=== PATIENT | male | born 1940 | race Caucasian/White ===

== ENCOUNTER 2020-11-03 19:45 | Observation (INO) | payer MEDICARE ==
[2020-11-03] MEDS ORDERED: Sodium Chloride 0.9% 10 ML Syringe FLUSH PRN (20:45)
--- NOTE | 2020-11-03 21:42 | EDM.PDOC ---
ED HPI GENERAL MEDICAL PROBLEM - General Chief Complaint: Skin Complaint Stated Complaint: HEAD PAIN Time Seen by Provider: 11/03/20 20:05 Source of Information: Reports: Patient History Limitations: Reports: No Limitations - History of Present Illness INITIAL COMMENTS - FREE TEXT/NARRATIVE: The patient has come in with a painful shingles eruption. 5 days ago, Tuesday he felt some annoying sensation on the left side of his forehead and face but no rash or skin eruption. The following day, , 4 days ago the rash broke out on his forehead primarily. Yesterday, Tuesday he was seen in clinic and started on Valtrex. Today he was seen by an hot kettle tender who assured him that the virus "had not gone into the eye" and also by his primary and was given a prescription for Percocet and he took his first dose of short while ago. According to the records from the office visit earlier today "patient states he would prefer to go to the ER for further pain management." There are no readily identified risk factors other than chickenpox as a child and former smoking status. He does have a history of macular degeneration affecting his left eye. The patient apparently smoked off and on for a number of years but quit for good 7 years ago. The patient takes no medications on a regular basis. He has come to us essentially for pain management. The patient's son arrived at bedside and provides additional information for us. The patient lives alone. His functional status has decreased considerably since this outbreak of shingles. He has been taking nourishment poorly. He is unsteady on his feet. He has macular degeneration which impairs his ability to make urgent telephone calls in the event of a fall or other problem. Due to the son's travel schedule and the presence of vulnerable small children in the household they are unable to bring the patient into their home and there is no other place for him to go. Headache Pain Score (Numeric/FACES): 7 - Related Data Allergies Allergy/AdvReac Type Severity Reaction Status Date / Time No Known Allergies Allergy Verified 11/09/13 20:09 Home Meds: Home Meds Ondansetron [Zofran ODT] 4 mg PO ASDIRECTED PRN 11/03/20 [History] oxyCODONE HCl/Acetaminophen [Percocet 5-325 mg Tablet] 1 tab PO ASDIRECTED PRN 11/03/20 [History] valACYclovir [Valtrex] 1,000 mg PO TID 11/03/20 [History] Past Medical History - Infectious Disease History Infectious Disease History: Reports: Shingles - Past Surgical History Musculoskeletal Surgical History: Reports: Arthroscopic Knee Social & Family History - Tobacco Use Tobacco Use Status *Q: Former Tobacco User Used Tobacco, but Quit: Yes Month/Year Tobacco Last Used: 2013 - Alcohol Use Days Per Week of Alcohol Use: 7 Number of Drinks Per Day: 1 Total Drinks Per Week: 7 - Recreational Drug Use Recreational Drug Use: No ED ROS GENERAL - Review of Systems Review Of Systems: Comprehensive ROS is negative, except as noted in HPI. ED EXAM, SKIN/RASH Exam: See Below Text/Narrative:: On exam the patient is alert and in no distress. Head normocephalic atraumatic. EOMI, PERRLA. Regarding the left eye there is injection of the conjunctiva. There is a small area lateral and slightly above the cornea about 3 mm diameter which seems to represent a mild subconjunctival hematoma. The cornea, iris/pupil, and anterior chamber are all unremarkable. There is swelling and redness of the eyelids on the left as well as some erythema and swelling of tissues around the orbit. There is a crusted lesion above the eyebrow laterally on the left side. There are other smaller crusted lesions scattered around this 1. No other lesions are identified at this time. There is a fair amount of erythema affecting the left side of the face superiorly. Neck is supple without jugular venous distention. Lungs are clear. Heart is regular. Abdomen is soft and nontender. No peripheral edema cyanosis or clubbing of digits. Neurologically he is grossly intact with fluent speech and no sensory or motor deficit. Skin is warm and dry except as noted above. Course - Vital Signs Text/Narrative:: Since the onset of the patient's shingles he has had significant decline in function. He is taking nourishment poorly. There is failure to thrive. He lives alone and there would be a safety issue sending him home tonight and there is no alternative placement for him at this time. Recommend observation admission to make arrangements for care for the patient if that is possible. Presented to Dr. Starr hospitalist and he is admitted into observation status on telemetry. See orders. Last Recorded V/S: Last Vital Signs Temp 37.6 C 11/03/20 19:52 Pulse 79 11/03/20 19:52 Resp 16 11/03/20 19:52 BP 182/102 H 11/03/20 19:52 Pulse Ox 97 11/03/20 19:52 - Orders/Labs/Meds Orders: Active Orders 24 hr Category Date Time Status Patient Status [ADT] Routine ADT 11/04/20 00:48 Active Peripheral IV Care [RC] . DIRECTED Care 11/03/20 20:46 Active Sodium Chloride 0.9% [Normal Saline] 1,000 ml Med 11/03/20 23:00 Active IV ASDIRECTED Sodium Chloride 0.9% [Saline Flush] Med 11/03/20 20:45 Active 10 ml FLUSH ASDIRECTED PRN Peripheral IV Insertion Adult [OM.PC] Stat Oth 11/03/20 20:46 Ordered Medication Orders Sodium Chloride (Normal Saline) 1,000 mls @ 75 mls/hr IV ASDIRECTED MORALES Last Admin: 11/03/20 23:11 Dose: 75 mls/hr Documented by: MARINA Sodium Chloride (Sodium Chloride 0.9% 10 Ml Syringe) 10 ml FLUSH ASDIRECTED PRN PRN Reason: Keep Vein Open Last Admin: 11/03/20 21:21 Dose: 10 ml Documented by: MARINA Labs: Laboratory Tests 11/03/20 11/03/20 11/03/20 Range/Units 21:05 21:05 21:05 WBC 4.47 (4.23-9.07) K/mm3 RBC 4.60 L (4.63-6.08) M/mm3 Hgb 14.4 (13.7-17.5) gm/dl Hct 43.0 (40.1-51.0) % MCV 93.5 H (79.0-92.2) fl MCH 31.3 (25.7-32.2) pg MCHC 33.5 (32.2-35.5) g/dl RDW Std Deviation 40.9 (35.1-43.9) fL Plt Count 165 (163-337) K/mm3 MPV 9.5 (9.4-12.3) fl Neutrophils % (Manual) 75 H (40-60) % Band Neutrophils % 0 (0-10) % Lymphocytes % (Manual) 16 L (20-40) % Atypical Lymphs % 0 % Monocytes % (Manual) 9 (2-10) % Eosinophils % (Manual) 0 L (0.8-7.0) % Basophils % (Manual) 0 L (0.2-1.2) Platelet Estimate Adequate RBC Morph Comment Normal ESR 19 H (0-15) mm/hr Sodium 138 (136-145) mEq/L Potassium 4.3 (3.5-5.1) mEq/L Chloride 100 (98-107) mEq/L Carbon Dioxide 25 (21-32) mEq/L Anion Gap 17.3 H (5-15) BUN 22 H (7-18) mg/dL Creatinine 1.4 H (0.7-1.3) mg/dL Est Cr Clr Drug Dosing 44.90 mL/min Estimated GFR (MDRD) 49 (>60) mL/min BUN/Creatinine Ratio 15.7 (14-18) Glucose 112 (83-115) mg/dL Calcium 9.1 (8.5-10.1) mg/dL Total Bilirubin 0.6 (0.2-1.0) mg/dL AST 23 (15-37) U/L ALT 29 (16-63) U/L Alkaline Phosphatase 74 (46-116) U/L C-Reactive Protein 4.8 H* (<1.0) mg/dL Total Protein 7.3 (6.4-8.2) g/dl Albumin 3.5 (3.4-5.0) g/dl Globulin 3.8 gm/dL Albumin/Globulin Ratio 0.9 L (1-2) SARS-CoV-2 RNA (SOCO) (NEGATIVE) 11/03/20 Range/Units 23:00 WBC (4.23-9.07) K/mm3 RBC (4.63-6.08) M/mm3 Hgb (13.7-17.5) gm/dl Hct (40.1-51.0) % MCV (79.0-92.2) fl MCH (25.7-32.2) pg MCHC (32.2-35.5) g/dl RDW Std Deviation (35.1-43.9) fL Plt Count (163-337) K/mm3 MPV (9.4-12.3) fl Neutrophils % (Manual) (40-60) % Band Neutrophils % (0-10) % Lymphocytes % (Manual) (20-40) % Atypical Lymphs % % Monocytes % (Manual) (2-10) % Eosinophils % (Manual) (0.8-7.0) % Basophils % (Manual) (0.2-1.2) Platelet Estimate RBC Morph Comment ESR (0-15) mm/hr Sodium (136-145) mEq/L Potassium (3.5-5.1) mEq/L Chloride (98-107) mEq/L Carbon Dioxide (21-32) mEq/L Anion Gap (5-15) BUN (7-18) mg/dL Creatinine (0.7-1.3) mg/dL Est Cr Clr Drug Dosing mL/min Estimated GFR (MDRD) (>60) mL/min BUN/Creatinine Ratio (14-18) Glucose (83-115) mg/dL Calcium (8.5-10.1) mg/dL Total Bilirubin (0.2-1.0) mg/dL AST (15-37) U/L ALT (16-63) U/L Alkaline Phosphatase (46-116) U/L C-Reactive Protein (<1.0) mg/dL Total Protein (6.4-8.2) g/dl Albumin (3.4-5.0) g/dl Globulin gm/dL Albumin/Globulin Ratio (1-2) SARS-CoV-2 RNA (SOCO) Negative (NEGATIVE) Meds: Medications Generic Name Dose Route Start Last Admin Trade Name Frerafi PRN Reason Stop Dose Admin Sodium Chloride 1,000 mls @ 75 mls/hr 11/03/20 23:00 11/03/20 23:11 Normal Saline IV 75 mls/hr ASDIRECTED MORALES Administration Sodium Chloride 10 ml 11/03/20 20:45 11/03/20 21:21 Sodium Chloride 0.9% 10 Ml Syringe FLUSH 10 ml ASDIRECTED PRN Administration Keep Vein Open Discontinued Medications Generic Name Dose Route Start Last Admin Trade Name Freq PRN Reason Stop Dose Admin Ondansetron HCl 4 mg 11/03/20 22:35 11/03/20 22:41 Ondansetron 4 Mg Tab.Dis PO 11/03/20 22:36 4 mg ONETIME ONE Administration Departure - Departure Time of Disposition: 00:55 Disposition: Refer to Observation Condition: Fair Clinical Impression: Declining functional status, Adult failure to thrive Shingles Qualifiers: Herpes zoster complications: with other complications Qualified Code(s): B02.8 - Zoster with other complications - Discharge Information Referrals: Matthew Feliz Jr, MD [Primary Care Provider] - Forms: ED Department Discharge Sepsis Event Note (ED) - Evaluation Sepsis Screening Result: No Definite Risk - Focused Exam Vital Signs: Vital Signs Temp Pulse Resp BP Pulse Ox 11/03/20 19:52 37.6 C 79 16 182/102 H 97 - My Orders Last 24 Hours: My Active Orders 11/03/20 20:45 Sodium Chloride 0.9% [Saline Flush] 10 ml FLUSH ASDIRECTED PRN 11/03/20 20:46 Peripheral IV Care [RC] . DIRECTED Peripheral IV Insertion Adult [OM.PC] Stat 11/03/20 23:00 Sodium Chloride 0.9% [Normal Saline] 1,000 ml IV ASDIRECTED 11/04/20 00:48 Patient Status [ADT] Routine - Assessment/Plan Last 24 Hours: My Active Orders 11/03/20 20:45 Sodium Chloride 0.9% [Saline Flush] 10 ml FLUSH ASDIRECTED PRN 11/03/20 20:46 Peripheral IV Care [RC] . DIRECTED Peripheral IV Insertion Adult [OM.PC] Stat 11/03/20 23:00 Sodium Chloride 0.9% [Normal Saline] 1,000 ml IV ASDIRECTED 11/04/20 00:48 Patient Status [ADT] Routine
[2020-11-03] MEDS ORDERED: Ondansetron 4 MG Tab.DIS PO ONE (22:35)
[2020-11-03] MEDS ORDERED: Sodium Chloride 0.9% 1,000 ML IV SCH (23:00)
[2020-11-04] MEDS ORDERED: Acetaminophen 325 MG Tab PO PRN (01:14)
[2020-11-04] MEDS ORDERED: Morphine 2 MG/ML SYRINGE IVPUSH PRN (01:14)
[2020-11-04] MEDS ORDERED: Albuterol/Ipratropium 3.0-0.5 MG/3 ML Neb Soln NEB PRN (01:14)
[2020-11-04] MEDS ORDERED: Promethazine 12.5 MG in Sodium Chloride 0.9% 50 ML IV PRN (01:14)
[2020-11-04] MEDS ORDERED: LORazepam 2 MG/ML SDV IV PRN (01:14)
[2020-11-04] MEDS ORDERED: Lactated Ringers 1,000 ML IV SCH (01:15)
[2020-11-04] MEDS: LORazepam 2 MG/ML SDV IVPUSH ONE ×2 (01:22→01:29)
[2020-11-04] MEDS ORDERED: amLODIPine 5 MG Tab PO SCH (01:30)
[2020-11-04] MEDS: Heparin Sodium 5,000 Units/ML Vial SUBCUT SCH ×3 (01:34→17:33)
--- NOTE | 2020-11-04 01:42 | PCM.HP.2 ---
H&P History of Present Illness - General Date of Service: 11/04/20 Admit Problem/Dx: Admission Diagnosis/Problem Admission Diagnosis/Problem Shingles (herpes zoster) polyneuropathy Source of Information: Patient, Provider - History of Present Illness Initial Comments - Free Text/Narative: Pt is a 79 yom with a hx of HTN and macular degeneration who presented to the ER due to painful shingles eruption on the left side of his forehead and face. He started to feel some hypersensitive sensation on Tuesday (5 days ago) in the area and the rash broke out on (4 days ago). He was seen in clinic yesterday (Tuesday) and started on Valacyclovir 1000mg po tid and percocet. He was seen by an information services consultant today who told him "had not gone into the eye". He had chickenpox as a child. Other than the symptoms mentioned above, he is fine. Denies headache, dizziness, nausea, vomiting, chest pain, sob or abodminal pain. In the ER, labs WBC 4.47, ESR 19, CRP 4.8. His creatinine 1.4 but there is no p revious record available. Headache Pain Score (Numeric/FACES): 7 - Related Data Allergies/Adverse Reactions: Allergies Allergy/AdvReac Type Severity Reaction Status Date / Time No Known Allergies Allergy Verified 11/09/13 20:09 Home Medications: Home Meds Ondansetron [Zofran ODT] 4 mg PO ASDIRECTED PRN 11/03/20 [History] oxyCODONE HCl/Acetaminophen [Percocet 5-325 mg Tablet] 1 tab PO ASDIRECTED PRN 11/03/20 [History] valACYclovir [Valtrex] 1,000 mg PO TID 11/03/20 [History] Past Medical History - Infectious Disease History Infectious Disease History: Reports: Shingles - Past Surgical History Musculoskeletal Surgical History: Reports: Arthroscopic Knee - History Comment History Comment: Chickinpox as a child Social & Family History - Family History Family Medical History: No Pertinent Family History (Denies genetic diseases in family) - Tobacco Use Tobacco Use Status *Q: Former Tobacco User Used Tobacco, but Quit: Yes Month/Year Tobacco Last Used: 2013 - Alcohol Use Days Per Week of Alcohol Use: 7 Number of Drinks Per Day: 1 Total Drinks Per Week: 7 - Recreational Drug Use Recreational Drug Use: No H&P Review of Systems - Review of Systems: Review Of Systems: See Below General: Reports: No Symptoms HEENT: Reports: Other (left forehead and face pain) Pulmonary: Reports: No Symptoms Cardiovascular: Reports: No Symptoms Gastrointestinal: Reports: No Symptoms Genitourinary: Reports: No Symptoms Musculoskeletal: Reports: No Symptoms Skin: Reports: Rash Psychiatric: Reports: No Symptoms Neurological: Reports: No Symptoms Hematologic/Lymphatic: Reports: No Symptoms Immunologic: Reports: No Symptoms Exam - Exam Exam: See Below - Vital Signs Vital Signs: Last Vital Signs Temp 36.6 C 11/04/20 01:14 Pulse 79 11/03/20 19:52 Resp 18 11/04/20 01:14 BP 172/92 H 11/04/20 01:14 Pulse Ox 94 L 11/04/20 01:39 Weight: 81.647 kg - Exam General: Alert, Oriented, Cooperative HEENT: EOMI, Other (Injection of left conjunctiva. there is a 3mm diameter of possible subconjunctival hematoma. swelling and erythema of eyelids and skin adjacent to orbit. some crusted lesions are noted in the area. ), PERRLA Neck: Supple, Full Range of Motion Lungs: Clear to Auscultation, Normal Respiratory Effort Cardiovascular: Regular Rate, Regular Rhythm, Normal S1, Normal S2 GI/Abdominal Exam: Normal Bowel Sounds, Soft, Non-Tender, No Organomegaly, No Distention Extremities: Normal Inspection, Normal Range of Motion, Non-Tender, No Pedal Edema Skin: Warm, Dry, Intact Neurological: Cranial Nerves Intact, Reflexes Equal Bilateral, Strength Equal Bilateral Neuro Extensive - Mental Status: Alert, Oriented x3, Normal Mood/Affect Neuro Extensive - Motor, Sensory, Reflexes: CN II-XII Intact, Normal Reflexes Psychiatric: Normal Mood - Patient Data Lab Results Last 24 hrs: Laboratory Results - last 24 hr 11/03/20 11/03/20 11/03/20 Range/Units 21:05 21:05 21:05 WBC 4.47 (4.23-9.07) K/mm3 RBC 4.60 L (4.63-6.08) M/mm3 Hgb 14.4 (13.7-17.5) gm/dl Hct 43.0 (40.1-51.0) % MCV 93.5 H (79.0-92.2) fl MCH 31.3 (25.7-32.2) pg MCHC 33.5 (32.2-35.5) g/dl RDW Std Deviation 40.9 (35.1-43.9) fL Plt Count 165 (163-337) K/mm3 MPV 9.5 (9.4-12.3) fl Neutrophils % (Manual) 75 H (40-60) % Band Neutrophils % 0 (0-10) % Lymphocytes % (Manual) 16 L (20-40) % Atypical Lymphs % 0 % Monocytes % (Manual) 9 (2-10) % Eosinophils % (Manual) 0 L (0.8-7.0) % Basophils % (Manual) 0 L (0.2-1.2) Platelet Estimate Adequate RBC Morph Comment Normal ESR 19 H (0-15) mm/hr Sodium 138 (136-145) mEq/L Potassium 4.3 (3.5-5.1) mEq/L Chloride 100 (98-107) mEq/L Carbon Dioxide 25 (21-32) mEq/L Anion Gap 17.3 H (5-15) BUN 22 H (7-18) mg/dL Creatinine 1.4 H (0.7-1.3) mg/dL Est Cr Clr Drug Dosing 44.90 mL/min Estimated GFR (MDRD) 49 (>60) mL/min BUN/Creatinine Ratio 15.7 (14-18) Glucose 112 (83-115) mg/dL Calcium 9.1 (8.5-10.1) mg/dL Total Bilirubin 0.6 (0.2-1.0) mg/dL AST 23 (15-37) U/L ALT 29 (16-63) U/L Alkaline Phosphatase 74 (46-116) U/L C-Reactive Protein 4.8 H* (<1.0) mg/dL Total Protein 7.3 (6.4-8.2) g/dl Albumin 3.5 (3.4-5.0) g/dl Globulin 3.8 gm/dL Albumin/Globulin Ratio 0.9 L (1-2) SARS-CoV-2 RNA (SOCO) (NEGATIVE) 11/03/20 Range/Units 23:00 WBC (4.23-9.07) K/mm3 RBC (4.63-6.08) M/mm3 Hgb (13.7-17.5) gm/dl Hct (40.1-51.0) % MCV (79.0-92.2) fl MCH (25.7-32.2) pg MCHC (32.2-35.5) g/dl RDW Std Deviation (35.1-43.9) fL Plt Count (163-337) K/mm3 MPV (9.4-12.3) fl Neutrophils % (Manual) (40-60) % Band Neutrophils % (0-10) % Lymphocytes % (Manual) (20-40) % Atypical Lymphs % % Monocytes % (Manual) (2-10) % Eosinophils % (Manual) (0.8-7.0) % Basophils % (Manual) (0.2-1.2) Platelet Estimate RBC Morph Comment ESR (0-15) mm/hr Sodium (136-145) mEq/L Potassium (3.5-5.1) mEq/L Chloride (98-107) mEq/L Carbon Dioxide (21-32) mEq/L Anion Gap (5-15) BUN (7-18) mg/dL Creatinine (0.7-1.3) mg/dL Est Cr Clr Drug Dosing mL/min Estimated GFR (MDRD) (>60) mL/min BUN/Creatinine Ratio (14-18) Glucose (83-115) mg/dL Calcium (8.5-10.1) mg/dL Total Bilirubin (0.2-1.0) mg/dL AST (15-37) U/L ALT (16-63) U/L Alkaline Phosphatase (46-116) U/L C-Reactive Protein (<1.0) mg/dL Total Protein (6.4-8.2) g/dl Albumin (3.4-5.0) g/dl Globulin gm/dL Albumin/Globulin Ratio (1-2) SARS-CoV-2 RNA (SOCO) Negative (NEGATIVE) Result Diagrams: 11/03/20 21:05 11/03/20 21:05 Sepsis Event Note - Evaluation Sepsis Screening Result: No Definite Risk - Focused Exam Vital Signs: Vital Signs Temp Pulse Resp BP BP Pulse Ox Pulse Ox 11/04/20 01:39 94 L 11/04/20 01:14 36.6 C 18 172/92 H 94 L 11/03/20 19:52 37.6 C 79 16 182/102 H 97 Problem List Initiated/Reviewed/Updated: Yes Orders Last 24hrs: Active Orders 24 hr Category Date Time Status Patient Status [ADT] Routine ADT 11/04/20 00:48 Active Bedrest Bedside Commode [RC] ASDIRECTED Care 11/04/20 01:14 Ordered Cardiac Monitoring [RC] CONTINUOUS Care 11/04/20 01:14 Ordered Intake and Output [RC] QSHIFT Care 11/04/20 01:14 Ordered Nurse Communication: Isolation [RC] ASDIRECTED Care 11/04/20 01:25 Ordered Oxygen Therapy [RC] PRN Care 11/04/20 01:14 Ordered Peripheral IV Care [RC] . DIRECTED Care 11/03/20 20:46 Active RT Aerosol Therapy [RC] ASDIRECTED Care 11/04/20 01:17 Ordered VTE/DVT Education [RC] PER UNIT ROUTINE Care 11/04/20 01:14 Ordered Vital Signs [RC] Q4H Care 11/04/20 01:14 Ordered OT Evaluation and Treatment [CONS] Routine Cons 11/04/20 01:17 Ordered PT Evaluation and Treatment [CONS] Routine Cons 11/04/20 01:17 Ordered Regular Diet [DIET] Diet 11/04/20 Breakfast Ordered A1C [GLYCOSYLATED HEMOGLOBIN,HGBA1C] [CHEM] Stat Lab 11/04/20 01:26 Ordered CBC WITH AUTO DIFF [HEME] DAILY Lab 11/04/20 05:00 Ordered CBC WITH AUTO DIFF [HEME] DAILY Lab 11/05/20 05:00 Ordered CBC WITH AUTO DIFF [HEME] DAILY Lab 11/06/20 05:00 Ordered CBC WITH AUTO DIFF [HEME] DAILY Lab 11/07/20 05:00 Ordered CBC WITH AUTO DIFF [HEME] DAILY Lab 11/08/20 05:00 Ordered COMPREHENSIVE METABOLIC PN,CMP [CHEM] DAILY Lab 11/04/20 05:00 Ordered COMPREHENSIVE METABOLIC PN,CMP [CHEM] DAILY Lab 11/05/20 05:00 Ordered COMPREHENSIVE METABOLIC PN,CMP [CHEM] DAILY Lab 11/06/20 05:00 Ordered COMPREHENSIVE METABOLIC PN,CMP [CHEM] DAILY Lab 11/07/20 05:00 Ordered COMPREHENSIVE METABOLIC PN,CMP [CHEM] DAILY Lab 11/08/20 05:00 Ordered CULTURE BLOOD [BC] Stat Lab 11/04/20 01:17 Ordered MAGNESIUM [CHEM] Routine Lab 11/04/20 01:17 Ordered PRO B-TYPE NATRIUR PEPT,BNPPRO [CHEM] Stat Lab 11/04/20 01:26 Ordered TROPONIN I [CHEM] Q6H Lab 11/04/20 01:17 Ordered TROPONIN I [CHEM] Q6H Lab 11/04/20 07:17 Ordered TSH [CHEM] Stat Lab 11/04/20 01:26 Ordered Acetaminophen [TylenoL] Med 11/04/20 01:14 Ordered 650 mg PO Q6H PRN Albuterol/Ipratropium [DuoNeb 3.0-0.5 MG/3 ML] Med 11/04/20 01:14 Ordered 3 ml NEB Q4H PRN Heparin Sodium Med 11/04/20 01:15 Ordered 5,000 units SUBCUT Q8H LORazepam [Ativan] Med 11/04/20 01:14 Ordered 0.5 mg IV Q6H PRN Lactated Ringers [Ringers, Lactated] 1,000 ml Med 11/04/20 01:15 Ordered IV ASDIRECTED Morphine Med 11/04/20 01:14 Ordered 2 mg IVPUSH Q4H PRN Promethazine [Phenergan] 12.5 mg Med 11/04/20 01:14 Ordered Sodium Chloride 0.9% [Normal Saline] 50 ml IV Q6H Sodium Chloride 0.9% [Normal Saline] 1,000 ml Med 11/03/20 23:00 Active IV ASDIRECTED Sodium Chloride 0.9% [Saline Flush] Med 11/03/20 20:45 Active 10 ml FLUSH ASDIRECTED PRN amLODIPine [Norvasc] Med 11/04/20 01:30 Ordered 2.5 mg PO DAILY hydrALAZINE [Apresoline] Med 11/04/20 01:20 Ordered 10 mg IVPUSH Q4H PRN traMADol [Ultram] Med 11/04/20 01:22 Ordered 50 mg PO Q6H PRN valACYclovir [Valtrex] Med 11/04/20 01:30 Ordered 500 mg PO DAILY Isolation [COMM] Routine Oth 11/04/20 01:25 Ordered Peripheral IV Insertion Adult [OM.PC] Stat Oth 11/03/20 20:46 Ordered Medication Orders Acetaminophen (Acetaminophen 325 Mg Tab) 650 mg PO Q6H PRN PRN Reason: Pain (Mild 1-3)/fever Albuterol/Ipratropium (Albuterol/Ipratropium 3.0-0.5 Mg/3 Ml Neb Soln) 3 ml NEB Q4H PRN PRN Reason: Shortness Of Breath/wheezing Amlodipine Besylate (Amlodipine 5 Mg Tab) 2.5 mg PO DAILY [facility] Heparin Sodium (Porcine) (Heparin Sodium 5,000 Units/Ml Vial) 5,000 units SUBCUT Q8H [facility] Last Admin: 11/04/20 01:34 Dose: Not Given Documented by: RADHA Hydralazine HCl (Hydralazine 20 Mg/Ml Sdv) 10 mg IVPUSH Q4H PRN PRN Reason: Hypertension Sodium Chloride (Normal Saline) 1,000 mls @ 75 mls/hr IV ASDIRECTED [facility] Last Admin: 11/03/20 23:11 Dose: 75 mls/hr Documented by: MARINA Lactated Ringer's (Ringers, Lactated) 1,000 mls @ 70 mls/hr IV ASDIRECTED [facility] Promethazine HCl 12.5 mg/ (Sodium Chloride) 50.5 mls @ 100 mls/hr IV Q6H PRN PRN Reason: Nausea/Vomiting Lorazepam (Lorazepam 2 Mg/Ml Sdv) 0.5 mg IV Q6H PRN PRN Reason: Agitation Morphine Sulfate (Morphine 2 Mg/Ml Syringe) 2 mg IVPUSH Q4H PRN PRN Reason: Pain (severe 7-10) Stop: 11/05/20 01:16 Sodium Chloride (Sodium Chloride 0.9% 10 Ml Syringe) 10 ml FLUSH ASDIRECTED PRN PRN Reason: Keep Vein Open Last Admin: 11/03/20 21:21 Dose: 10 ml Documented by: MARINA Tramadol HCl (Tramadol 50 Mg Tab) 50 mg PO Q6H PRN PRN Reason: Pain (moderate 4-6) Valacyclovir HCl (Valacyclovir 500 Mg Tab) 500 mg PO DAILY [facility] Assessment/Plan Comment:: Pt is a 79 yom with a hx of HTN and macular degeneration who presented to the ER due to painful shingles eruption on the left side of his forehead and face. He started to feel some hypersensitive sensation on Tuesday (5 days ago) and the rash broke out on (4 days ago). Assessment and plan: 1. Shinjudit had chickenpox as a child Rash broke out on (4 days ago). Seen by an information services consultant today - had not gone into the eye He started Valacyclovir 1000mg po tid yesterday (after 72-hr period) Benadryl prn capsaicin prn I will still put him on Valacyclovir but reduce dose to 500mg QD based on his renal function. I would not order MRI or LP at this point. He may need to transfer to higher level if his eye is further involved. No evidence of bacterial infections. I would not like to order abx for bacterial infection at this moment. 2. Subconjunctival hematoma monitor vitamin C 3. Hypertensive urgency, BP 182/102 4. HTN Home med does not include BP med. I will start him on amlodipine 2.5 mg daily and hydralazine prn monitor BP 5. KAILYN or KAILYN on CKD creatinine 1.4 Avoid nephrotoxic meds Repeat renal function in am IVF 6. Macular degeneration, left eye 7. Adult failure to thrive 8. Self-care deficit lives alonelives alone PT OT Professor Of Engineering consult DVT prophylaxis: heparin Deposition: PT/OT - Mortality Measure Prognosis:: Good
[2020-11-04] MEDS: traMADol 50 MG Tab PO PRN ×2 (01:46→17:47)
[2020-11-04] MEDS ORDERED: diphenhydrAMINE 12.5 MG/5 ML Liquid 5 ML UD Cup PO PRN (02:03)
[2020-11-04] MEDS ORDERED: Capsaicin 0.1% Cream 42.5 GM Tube TOP PRN ×2 (02:04→07:30)
[2020-11-04] MEDS: Pantoprazole 40 MG Tab.CR PO SCH ×2 (02:29→08:38)
[2020-11-04] MEDS: Ascorbic Acid 500 MG Tab PO SCH ×3 (02:29→21:01)
[2020-11-04] MEDS: valACYclovir 500 MG Tab PO SCH ×2 (02:29→08:38)
[2020-11-04 02:40] LABS: HEMOGLOBIN A1C 5.5 %
[2020-11-04] MEDS: hydrALAZINE 20 MG/ML SDV IVPUSH PRN (03:20)
[2020-11-04] MEDS: amLODIPine 2.5 MG Tab PO SCH (08:37)
[2020-11-04] MEDS ORDERED: valACYclovir 1,000 MG Tab PO SCH ×2 (09:00→15:00)
[2020-11-04] MEDS: Lactated Ringers 1,000 ML IV SCH ×2 (09:38→14:57)
--- NOTE | 2020-11-04 09:51 | PCM.PN ---
- General Info Date of Service: 11/04/20 Admission Dx/Problem (Free Text): Admission Diagnosis/Problem Admission Diagnosis/Problem Shingles (herpes zoster) polyneuropathy - Patient Data Vitals - Most Recent: Last Vital Signs Temp 99.0 F 11/04/20 08:00 Pulse 88 11/04/20 04:15 Resp 18 11/04/20 08:00 BP 152/82 H 11/04/20 08:37 Pulse Ox 92 L 11/04/20 08:00 Weight - Most Recent: 173 lb 1.6 oz I&O - Last 24 Hours: Intake & Output 11/03/20 11/04/20 11/04/20 22:59 06:59 14:59 Intake Total 540 Balance 540 Lab Results Last 24 Hours: Laboratory Results - last 24 hr 11/03/20 11/03/20 11/03/20 Range/Units 21:05 21:05 21:05 WBC 4.47 (4.23-9.07) K/mm3 RBC 4.60 L (4.63-6.08) M/mm3 Hgb 14.4 (13.7-17.5) gm/dl Hct 43.0 (40.1-51.0) % MCV 93.5 H (79.0-92.2) fl MCH 31.3 (25.7-32.2) pg MCHC 33.5 (32.2-35.5) g/dl RDW Std Deviation 40.9 (35.1-43.9) fL Plt Count 165 (163-337) K/mm3 MPV 9.5 (9.4-12.3) fl Neut % (Auto) (34.0-67.9) % Lymph % (Auto) (21.8-53.1) % Carlton % (Auto) (5.3-12.2) % Eos % (Auto) (0.8-7.0) Baso % (Auto) (0.1-1.2) % Neut # (Auto) (1.78-5.38) K/mm3 Lymph # (Auto) (1.32-3.57) K/mm3 Carlton # (Auto) (0.30-0.82) K/mm3 Eos # (Auto) (0.04-0.54) K/mm3 Baso # (Auto) (0.01-0.08) K/mm3 Neutrophils % (Manual) 75 H (40-60) % Band Neutrophils % 0 (0-10) % Lymphocytes % (Manual) 16 L (20-40) % Atypical Lymphs % 0 % Monocytes % (Manual) 9 (2-10) % Eosinophils % (Manual) 0 L (0.8-7.0) % Basophils % (Manual) 0 L (0.2-1.2) Platelet Estimate Adequate RBC Morph Comment Normal ESR 19 H (0-15) mm/hr Sodium 138 (136-145) mEq/L Potassium 4.3 (3.5-5.1) mEq/L Chloride 100 (98-107) mEq/L Carbon Dioxide 25 (21-32) mEq/L Anion Gap 17.3 H (5-15) BUN 22 H (7-18) mg/dL Creatinine 1.4 H (0.7-1.3) mg/dL Est Cr Clr Drug Dosing 44.90 mL/min Estimated GFR (MDRD) 49 (>60) mL/min BUN/Creatinine Ratio 15.7 (14-18) Glucose 112 (83-115) mg/dL Hemoglobin A1c ( - 5.6) % Calcium 9.1 (8.5-10.1) mg/dL Magnesium (1.8-2.4) mg/dl Total Bilirubin 0.6 (0.2-1.0) mg/dL AST 23 (15-37) U/L ALT 29 (16-63) U/L Alkaline Phosphatase 74 (46-116) U/L Troponin I (0.00-0.056) ng/mL C-Reactive Protein 4.8 H* (<1.0) mg/dL NT-Pro-B Natriuret Pep (0-450) pg/mL Total Protein 7.3 (6.4-8.2) g/dl Albumin 3.5 (3.4-5.0) g/dl Globulin 3.8 gm/dL Albumin/Globulin Ratio 0.9 L (1-2) TSH 3rd Generation (0.358-3.74) uIU/mL SARS-CoV-2 RNA (SOCO) (NEGATIVE) 11/03/20 11/04/20 11/04/20 Range/Units 23:00 01:46 01:46 WBC 4.32 (4.23-9.07) K/mm3 RBC 4.36 L (4.63-6.08) M/mm3 Hgb 14.0 (13.7-17.5) gm/dl Hct 41.2 (40.1-51.0) % MCV 94.5 H (79.0-92.2) fl MCH 32.1 (25.7-32.2) pg MCHC 34.0 (32.2-35.5) g/dl RDW Std Deviation 40.8 (35.1-43.9) fL Plt Count 148 L (163-337) K/mm3 MPV 10.3 (9.4-12.3) fl Neut % (Auto) 76.5 H (34.0-67.9) % Lymph % (Auto) 12.0 L (21.8-53.1) % Carlton % (Auto) 11.1 (5.3-12.2) % Eos % (Auto) 0 L (0.8-7.0) Baso % (Auto) 0.2 (0.1-1.2) % Neut # (Auto) 3.30 (1.78-5.38) K/mm3 Lymph # (Auto) 0.52 L (1.32-3.57) K/mm3 Carlton # (Auto) 0.48 (0.30-0.82) K/mm3 Eos # (Auto) 0.00 L (0.04-0.54) K/mm3 Baso # (Auto) 0.01 (0.01-0.08) K/mm3 Neutrophils % (Manual) (40-60) % Band Neutrophils % (0-10) % Lymphocytes % (Manual) (20-40) % Atypical Lymphs % % Monocytes % (Manual) (2-10) % Eosinophils % (Manual) (0.8-7.0) % Basophils % (Manual) (0.2-1.2) Platelet Estimate RBC Morph Comment ESR (0-15) mm/hr Sodium (136-145) mEq/L Potassium (3.5-5.1) mEq/L Chloride (98-107) mEq/L Carbon Dioxide (21-32) mEq/L Anion Gap (5-15) BUN (7-18) mg/dL Creatinine (0.7-1.3) mg/dL Est Cr Clr Drug Dosing mL/min Estimated GFR (MDRD) (>60) mL/min BUN/Creatinine Ratio (14-18) Glucose (83-115) mg/dL Hemoglobin A1c ( - 5.6) % Calcium (8.5-10.1) mg/dL Magnesium 2.0 (1.8-2.4) mg/dl Total Bilirubin (0.2-1.0) mg/dL AST (15-37) U/L ALT (16-63) U/L Alkaline Phosphatase (46-116) U/L Troponin I < 0.017 (0.00-0.056) ng/mL C-Reactive Protein (<1.0) mg/dL NT-Pro-B Natriuret Pep (0-450) pg/mL Total Protein (6.4-8.2) g/dl Albumin (3.4-5.0) g/dl Globulin gm/dL Albumin/Globulin Ratio (1-2) TSH 3rd Generation (0.358-3.74) uIU/mL SARS-CoV-2 RNA (SOCO) Negative (NEGATIVE) 11/04/20 11/04/20 11/04/20 Range/Units 01:46 01:46 01:46 WBC (4.23-9.07) K/mm3 RBC (4.63-6.08) M/mm3 Hgb (13.7-17.5) gm/dl Hct (40.1-51.0) % MCV (79.0-92.2) fl MCH (25.7-32.2) pg MCHC (32.2-35.5) g/dl RDW Std Deviation (35.1-43.9) fL Plt Count (163-337) K/mm3 MPV (9.4-12.3) fl Neut % (Auto) (34.0-67.9) % Lymph % (Auto) (21.8-53.1) % Carlton % (Auto) (5.3-12.2) % Eos % (Auto) (0.8-7.0) Baso % (Auto) (0.1-1.2) % Neut # (Auto) (1.78-5.38) K/mm3 Lymph # (Auto) (1.32-3.57) K/mm3 Carlton # (Auto) (0.30-0.82) K/mm3 Eos # (Auto) (0.04-0.54) K/mm3 Baso # (Auto) (0.01-0.08) K/mm3 Neutrophils % (Manual) (40-60) % Band Neutrophils % (0-10) % Lymphocytes % (Manual) (20-40) % Atypical Lymphs % % Monocytes % (Manual) (2-10) % Eosinophils % (Manual) (0.8-7.0) % Basophils % (Manual) (0.2-1.2) Platelet Estimate RBC Morph Comment ESR (0-15) mm/hr Sodium 137 (136-145) mEq/L Potassium 4.2 (3.5-5.1) mEq/L Chloride 99 (98-107) mEq/L Carbon Dioxide 24 (21-32) mEq/L Anion Gap 18.2 H (5-15) BUN 23 H (7-18) mg/dL Creatinine 1.2 (0.7-1.3) mg/dL Est Cr Clr Drug Dosing 52.38 mL/min Estimated GFR (MDRD) 59 (>60) mL/min BUN/Creatinine Ratio 19.2 H (14-18) Glucose 119 H (83-115) mg/dL Hemoglobin A1c 5.5 ( - 5.6) % Calcium 8.7 (8.5-10.1) mg/dL Magnesium (1.8-2.4) mg/dl Total Bilirubin 0.5 (0.2-1.0) mg/dL AST 24 (15-37) U/L ALT 30 (16-63) U/L Alkaline Phosphatase 74 (46-116) U/L Troponin I (0.00-0.056) ng/mL C-Reactive Protein (<1.0) mg/dL NT-Pro-B Natriuret Pep 326 (0-450) pg/mL Total Protein 7.4 (6.4-8.2) g/dl Albumin 3.5 (3.4-5.0) g/dl Globulin 3.9 gm/dL Albumin/Globulin Ratio 0.9 L (1-2) TSH 3rd Generation (0.358-3.74) uIU/mL SARS-CoV-2 RNA (SOCO) (NEGATIVE) 03/30/21 03/30/21 Range/Units 01:46 08:04 WBC (4.23-9.07) K/mm3 RBC (4.63-6.08) M/mm3 Hgb (13.7-17.5) gm/dl Hct (40.1-51.0) % MCV (79.0-92.2) fl MCH (25.7-32.2) pg MCHC (32.2-35.5) g/dl RDW Std Deviation (35.1-43.9) fL Plt Count (163-337) K/mm3 MPV (9.4-12.3) fl Neut % (Auto) (34.0-67.9) % Lymph % (Auto) (21.8-53.1) % Carlton % (Auto) (5.3-12.2) % Eos % (Auto) (0.8-7.0) Baso % (Auto) (0.1-1.2) % Neut # (Auto) (1.78-5.38) K/mm3 Lymph # (Auto) (1.32-3.57) K/mm3 Carlton # (Auto) (0.30-0.82) K/mm3 Eos # (Auto) (0.04-0.54) K/mm3 Baso # (Auto) (0.01-0.08) K/mm3 Neutrophils % (Manual) (40-60) % Band Neutrophils % (0-10) % Lymphocytes % (Manual) (20-40) % Atypical Lymphs % % Monocytes % (Manual) (2-10) % Eosinophils % (Manual) (0.8-7.0) % Basophils % (Manual) (0.2-1.2) Platelet Estimate RBC Morph Comment ESR (0-15) mm/hr Sodium (136-145) mEq/L Potassium (3.5-5.1) mEq/L Chloride (98-107) mEq/L Carbon Dioxide (21-32) mEq/L Anion Gap (5-15) BUN (7-18) mg/dL Creatinine (0.7-1.3) mg/dL Est Cr Clr Drug Dosing mL/min Estimated GFR (MDRD) (>60) mL/min BUN/Creatinine Ratio (14-18) Glucose (83-115) mg/dL Hemoglobin A1c ( - 5.6) % Calcium (8.5-10.1) mg/dL Magnesium (1.8-2.4) mg/dl Total Bilirubin (0.2-1.0) mg/dL AST (15-37) U/L ALT (16-63) U/L Alkaline Phosphatase (46-116) U/L Troponin I < 0.017 (0.00-0.056) ng/mL C-Reactive Protein (<1.0) mg/dL NT-Pro-B Natriuret Pep (0-450) pg/mL Total Protein (6.4-8.2) g/dl Albumin (3.4-5.0) g/dl Globulin gm/dL Albumin/Globulin Ratio (1-2) TSH 3rd Generation 1.111 (0.358-3.74) uIU/mL SARS-CoV-2 RNA (SOCO) (NEGATIVE) Med Orders - Current: Current Medications Acetaminophen (Acetaminophen 325 Mg Tab) 650 mg PO Q6H PRN PRN Reason: Pain (Mild 1-3)/fever Albuterol/Ipratropium (Albuterol/Ipratropium 3.0-0.5 Mg/3 Ml Neb Soln) 3 ml NEB Q4H PRN PRN Reason: Shortness Of Breath/wheezing Amlodipine Besylate (Amlodipine 2.5 Mg Tab) 2.5 mg PO DAILY [facility] Last Admin: 11/04/20 08:37 Dose: 2.5 mg Documented by: Ascorbic Acid (Ascorbic Acid 500 Mg Tab) 500 mg PO BID [facility] Last Admin: 11/04/20 08:38 Dose: 500 mg Documented by: Capsaicin (Capsaicin 0.1% Cream 42.5 Gm Tube) 0 gm TOP Q6H PRN PRN Reason: Pain Diphenhydramine HCl (Diphenhydramine 12.5 Mg/5 Ml Liquid 5 Ml Ud Cup) 12.5 mg PO Q12H PRN PRN Reason: Itching Heparin Sodium (Porcine) (Heparin Sodium 5,000 Units/Ml Vial) 5,000 units SUBCUT Q8H [facility] Last Admin: 11/04/20 08:37 Dose: 5,000 units Documented by: Hydralazine HCl (Hydralazine 20 Mg/Ml Sdv) 10 mg IVPUSH Q4H PRN PRN Reason: Hypertension Last Admin: 11/04/20 03:20 Dose: 10 mg Documented by: Promethazine HCl 12.5 mg/ (Sodium Chloride) 50.5 mls @ 100 mls/hr IV Q6H PRN PRN Reason: Nausea/Vomiting Last Admin: 11/04/20 09:11 Dose: 100 mls/hr Documented by: Lactated Ringer's (Ringers, Lactated) 1,000 mls @ 100 mls/hr IV ASDIRECTED [facility] Last Admin: 11/04/20 09:38 Dose: 100 mls/hr Documented by: Lorazepam (Lorazepam 2 Mg/Ml Sdv) 0.5 mg IV Q6H PRN PRN Reason: Agitation Morphine Sulfate (Morphine 2 Mg/Ml Syringe) 2 mg IVPUSH Q4H PRN PRN Reason: Pain (severe 7-10) Stop: 11/05/20 01:16 Pantoprazole Sodium (Pantoprazole 40 Mg Tab.Cr) 40 mg PO DAILY [facility] Last Admin: 11/04/20 08:38 Dose: 40 mg Documented by: Sodium Chloride (Sodium Chloride 0.9% 10 Ml Syringe) 10 ml FLUSH ASDIRECTED PRN PRN Reason: Keep Vein Open Last Admin: 11/03/20 21:21 Dose: 10 ml Documented by: Tramadol HCl (Tramadol 50 Mg Tab) 50 mg PO Q6H PRN PRN Reason: Pain (moderate 4-6) Last Admin: 11/04/20 01:46 Dose: 50 mg Documented by: Valacyclovir HCl (Valacyclovir 500 Mg Tab) 500 mg PO DAILY [facility] Last Admin: 11/04/20 08:38 Dose: 500 mg Documented by: Discontinued Medications Amlodipine Besylate (Amlodipine 5 Mg Tab) 2.5 mg PO DAILY [facility] Last Admin: 11/04/20 01:44 Dose: 2.5 mg Documented by: Capsaicin (Capsaicin 0.1% Cream 42.5 Gm Tube) 0 gm TOP Q2H PRN PRN Reason: Pain Sodium Chloride (Normal Saline) 1,000 mls @ 75 mls/hr IV ASDIRECTED [facility] Last Admin: 11/03/20 23:11 Dose: 75 mls/hr Documented by: Lactated Ringer's (Ringers, Lactated) 1,000 mls @ 70 mls/hr IV ASDIRECTED [facility] Last Admin: 11/04/20 03:16 Dose: 70 mls/hr Documented by: Lorazepam (Lorazepam 2 Mg/Ml Sdv) 1 mg IVPUSH ONETIME ONE Stop: 11/04/20 00:57 Last Admin: 11/04/20 01:29 Dose: 1 mg Documented by: Ondansetron HCl (Ondansetron 4 Mg Tab.Dis) 4 mg PO ONETIME ONE Stop: 11/03/20 22:36 Last Admin: 11/03/20 22:41 Dose: 4 mg Documented by: Valacyclovir HCl (Valacyclovir 1,000 Mg Tab) 1,000 mg PO TID MORALES - Patient Data Lab Results Last 24 hrs: Laboratory Results - last 24 hr 11/03/20 11/03/20 11/03/20 Range/Units 21:05 21:05 21:05 WBC 4.47 (4.23-9.07) K/mm3 RBC 4.60 L (4.63-6.08) M/mm3 Hgb 14.4 (13.7-17.5) gm/dl Hct 43.0 (40.1-51.0) % MCV 93.5 H (79.0-92.2) fl MCH 31.3 (25.7-32.2) pg MCHC 33.5 (32.2-35.5) g/dl RDW Std Deviation 40.9 (35.1-43.9) fL Plt Count 165 (163-337) K/mm3 MPV 9.5 (9.4-12.3) fl Neut % (Auto) (34.0-67.9) % Lymph % (Auto) (21.8-53.1) % Carlton % (Auto) (5.3-12.2) % Eos % (Auto) (0.8-7.0) Baso % (Auto) (0.1-1.2) % Neut # (Auto) (1.78-5.38) K/mm3 Lymph # (Auto) (1.32-3.57) K/mm3 Carlton # (Auto) (0.30-0.82) K/mm3 Eos # (Auto) (0.04-0.54) K/mm3 Baso # (Auto) (0.01-0.08) K/mm3 Neutrophils % (Manual) 75 H (40-60) % Band Neutrophils % 0 (0-10) % Lymphocytes % (Manual) 16 L (20-40) % Atypical Lymphs % 0 % Monocytes % (Manual) 9 (2-10) % Eosinophils % (Manual) 0 L (0.8-7.0) % Basophils % (Manual) 0 L (0.2-1.2) Platelet Estimate Adequate RBC Morph Comment Normal ESR 19 H (0-15) mm/hr Sodium 138 (136-145) mEq/L Potassium 4.3 (3.5-5.1) mEq/L Chloride 100 (98-107) mEq/L Carbon Dioxide 25 (21-32) mEq/L Anion Gap 17.3 H (5-15) BUN 22 H (7-18) mg/dL Creatinine 1.4 H (0.7-1.3) mg/dL Est Cr Clr Drug Dosing 44.90 mL/min Estimated GFR (MDRD) 49 (>60) mL/min BUN/Creatinine Ratio 15.7 (14-18) Glucose 112 (83-115) mg/dL Hemoglobin A1c ( - 5.6) % Calcium 9.1 (8.5-10.1) mg/dL Magnesium (1.8-2.4) mg/dl Total Bilirubin 0.6 (0.2-1.0) mg/dL AST 23 (15-37) U/L ALT 29 (16-63) U/L Alkaline Phosphatase 74 (46-116) U/L Troponin I (0.00-0.056) ng/mL C-Reactive Protein 4.8 H* (<1.0) mg/dL NT-Pro-B Natriuret Pep (0-450) pg/mL Total Protein 7.3 (6.4-8.2) g/dl Albumin 3.5 (3.4-5.0) g/dl Globulin 3.8 gm/dL Albumin/Globulin Ratio 0.9 L (1-2) TSH 3rd Generation (0.358-3.74) uIU/mL SARS-CoV-2 RNA (SOCO) (NEGATIVE) 11/03/20 11/04/20 11/04/20 Range/Units 23:00 01:46 01:46 WBC 4.32 (4.23-9.07) K/mm3 RBC 4.36 L (4.63-6.08) M/mm3 Hgb 14.0 (13.7-17.5) gm/dl Hct 41.2 (40.1-51.0) % MCV 94.5 H (79.0-92.2) fl MCH 32.1 (25.7-32.2) pg MCHC 34.0 (32.2-35.5) g/dl RDW Std Deviation 40.8 (35.1-43.9) fL Plt Count 148 L (163-337) K/mm3 MPV 10.3 (9.4-12.3) fl Neut % (Auto) 76.5 H (34.0-67.9) % Lymph % (Auto) 12.0 L (21.8-53.1) % Carlton % (Auto) 11.1 (5.3-12.2) % Eos % (Auto) 0 L (0.8-7.0) Baso % (Auto) 0.2 (0.1-1.2) % Neut # (Auto) 3.30 (1.78-5.38) K/mm3 Lymph # (Auto) 0.52 L (1.32-3.57) K/mm3 Carlton # (Auto) 0.48 (0.30-0.82) K/mm3 Eos # (Auto) 0.00 L (0.04-0.54) K/mm3 Baso # (Auto) 0.01 (0.01-0.08) K/mm3 Neutrophils % (Manual) (40-60) % Band Neutrophils % (0-10) % Lymphocytes % (Manual) (20-40) % Atypical Lymphs % % Monocytes % (Manual) (2-10) % Eosinophils % (Manual) (0.8-7.0) % Basophils % (Manual) (0.2-1.2) Platelet Estimate RBC Morph Comment ESR (0-15) mm/hr Sodium (136-145) mEq/L Potassium (3.5-5.1) mEq/L Chloride (98-107) mEq/L Carbon Dioxide (21-32) mEq/L Anion Gap (5-15) BUN (7-18) mg/dL Creatinine (0.7-1.3) mg/dL Est Cr Clr Drug Dosing mL/min Estimated GFR (MDRD) (>60) mL/min BUN/Creatinine Ratio (14-18) Glucose (83-115) mg/dL Hemoglobin A1c ( - 5.6) % Calcium (8.5-10.1) mg/dL Magnesium 2.0 (1.8-2.4) mg/dl Total Bilirubin (0.2-1.0) mg/dL AST (15-37) U/L ALT (16-63) U/L Alkaline Phosphatase (46-116) U/L Troponin I < 0.017 (0.00-0.056) ng/mL C-Reactive Protein (<1.0) mg/dL NT-Pro-B Natriuret Pep (0-450) pg/mL Total Protein (6.4-8.2) g/dl Albumin (3.4-5.0) g/dl Globulin gm/dL Albumin/Globulin Ratio (1-2) TSH 3rd Generation (0.358-3.74) uIU/mL SARS-CoV-2 RNA (SOCO) Negative (NEGATIVE) 11/04/20 11/04/20 11/04/20 Range/Units 01:46 01:46 01:46 WBC (4.23-9.07) K/mm3 RBC (4.63-6.08) M/mm3 Hgb (13.7-17.5) gm/dl Hct (40.1-51.0) % MCV (79.0-92.2) fl MCH (25.7-32.2) pg MCHC (32.2-35.5) g/dl RDW Std Deviation (35.1-43.9) fL Plt Count (163-337) K/mm3 MPV (9.4-12.3) fl Neut % (Auto) (34.0-67.9) % Lymph % (Auto) (21.8-53.1) % Carlton % (Auto) (5.3-12.2) % Eos % (Auto) (0.8-7.0) Baso % (Auto) (0.1-1.2) % Neut # (Auto) (1.78-5.38) K/mm3 Lymph # (Auto) (1.32-3.57) K/mm3 Carlton # (Auto) (0.30-0.82) K/mm3 Eos # (Auto) (0.04-0.54) K/mm3 Baso # (Auto) (0.01-0.08) K/mm3 Neutrophils % (Manual) (40-60) % Band Neutrophils % (0-10) % Lymphocytes % (Manual) (20-40) % Atypical Lymphs % % Monocytes % (Manual) (2-10) % Eosinophils % (Manual) (0.8-7.0) % Basophils % (Manual) (0.2-1.2) Platelet Estimate RBC Morph Comment ESR (0-15) mm/hr Sodium 137 (136-145) mEq/L Potassium 4.2 (3.5-5.1) mEq/L Chloride 99 (98-107) mEq/L Carbon Dioxide 24 (21-32) mEq/L Anion Gap 18.2 H (5-15) BUN 23 H (7-18) mg/dL Creatinine 1.2 (0.7-1.3) mg/dL Est Cr Clr Drug Dosing 52.38 mL/min Estimated GFR (MDRD) 59 (>60) mL/min BUN/Creatinine Ratio 19.2 H (14-18) Glucose 119 H (83-115) mg/dL Hemoglobin A1c 5.5 ( - 5.6) % Calcium 8.7 (8.5-10.1) mg/dL Magnesium (1.8-2.4) mg/dl Total Bilirubin 0.5 (0.2-1.0) mg/dL AST 24 (15-37) U/L ALT 30 (16-63) U/L Alkaline Phosphatase 74 (46-116) U/L Troponin I (0.00-0.056) ng/mL C-Reactive Protein (<1.0) mg/dL NT-Pro-B Natriuret Pep 326 (0-450) pg/mL Total Protein 7.4 (6.4-8.2) g/dl Albumin 3.5 (3.4-5.0) g/dl Globulin 3.9 gm/dL Albumin/Globulin Ratio 0.9 L (1-2) TSH 3rd Generation (0.358-3.74) uIU/mL SARS-CoV-2 RNA (SOCO) (NEGATIVE) 11/04/20 11/04/20 Range/Units 01:46 08:04 WBC (4.23-9.07) K/mm3 RBC (4.63-6.08) M/mm3 Hgb (13.7-17.5) gm/dl Hct (40.1-51.0) % MCV (79.0-92.2) fl MCH (25.7-32.2) pg MCHC (32.2-35.5) g/dl RDW Std Deviation (35.1-43.9) fL Plt Count (163-337) K/mm3 MPV (9.4-12.3) fl Neut % (Auto) (34.0-67.9) % Lymph % (Auto) (21.8-53.1) % Carlton % (Auto) (5.3-12.2) % Eos % (Auto) (0.8-7.0) Baso % (Auto) (0.1-1.2) % Neut # (Auto) (1.78-5.38) K/mm3 Lymph # (Auto) (1.32-3.57) K/mm3 Carlton # (Auto) (0.30-0.82) K/mm3 Eos # (Auto) (0.04-0.54) K/mm3 Baso # (Auto) (0.01-0.08) K/mm3 Neutrophils % (Manual) (40-60) % Band Neutrophils % (0-10) % Lymphocytes % (Manual) (20-40) % Atypical Lymphs % % Monocytes % (Manual) (2-10) % Eosinophils % (Manual) (0.8-7.0) % Basophils % (Manual) (0.2-1.2) Platelet Estimate RBC Morph Comment ESR (0-15) mm/hr Sodium (136-145) mEq/L Potassium (3.5-5.1) mEq/L Chloride (98-107) mEq/L Carbon Dioxide (21-32) mEq/L Anion Gap (5-15) BUN (7-18) mg/dL Creatinine (0.7-1.3) mg/dL Est Cr Clr Drug Dosing mL/min Estimated GFR (MDRD) (>60) mL/min BUN/Creatinine Ratio (14-18) Glucose (83-115) mg/dL Hemoglobin A1c ( - 5.6) % Calcium (8.5-10.1) mg/dL Magnesium (1.8-2.4) mg/dl Total Bilirubin (0.2-1.0) mg/dL AST (15-37) U/L ALT (16-63) U/L Alkaline Phosphatase (46-116) U/L Troponin I < 0.017 (0.00-0.056) ng/mL C-Reactive Protein (<1.0) mg/dL NT-Pro-B Natriuret Pep (0-450) pg/mL Total Protein (6.4-8.2) g/dl Albumin (3.4-5.0) g/dl Globulin gm/dL Albumin/Globulin Ratio (1-2) TSH 3rd Generation 1.111 (0.358-3.74) uIU/mL SARS-CoV-2 RNA (SOCO) (NEGATIVE) Result Diagrams: 11/04/20 01:46 11/04/20 01:46 Sepsis Event Note - Evaluation Sepsis Screening Result: No Definite Risk - Focused Exam Vital Signs: Vital Signs Temp Pulse Resp BP BP Pulse Ox Pulse Ox 11/04/20 08:37 152/82 H 11/04/20 08:00 99.0 F 18 152/81 H 92 L 11/04/20 04:15 88 94 L 11/04/20 04:05 97.7 F 16 96/53 L 95 11/04/20 02:00 76 91 L 11/04/20 01:44 161/93 H 11/04/20 01:39 94 L 11/04/20 01:14 97.8 F 18 172/92 H 94 L - My Orders Last 24 Hours: My Active Orders 11/04/20 09:45 Lactated Ringers [Ringers, Lactated] 1,000 ml IV ASDIRECTED - Plan Plan:: Pt is a 79 yom with a hx of HTN and macular degeneration who presented to the ER due to painful shingles eruption on the left side of his forehead and face. He started to feel some hypersensitive sensation on Tuesday (5 days ago) and the rash broke out on (4 days ago). Assessment and plan: 1. Shingles had chickenpox as a child Rash broke out on (4 days ago). Seen by an stranding machine operator helper today - had not gone into the eye He started Valacyclovir 1000mg po tid yesterday (after 72-hr period) Benadryl prn capsaicin prn I will still put him on Valacyclovir but reduce dose to 500mg QD based on his renal function. I would not order MRI or LP at this point. He may need to transfer to higher level if his eye is further involved. No evidence of bacterial infections. I would not like to order abx for bacterial infection at this moment. 2. Subconjunctival hematoma monitor vitamin C 3. Hypertensive urgency, BP 182/102 4. HTN Home med does not include BP med. I will start him on amlodipine 2.5 mg daily and hydralazine prn monitor BP 5. KAILYN or KAILYN on CKD creatinine 1.4 Avoid nephrotoxic meds Repeat renal function in am IVF 6. Macular degeneration, left eye 7. Adult failure to thrive 8. Self-care deficit lives alonelives alone PT OT Water Vessel Captain consult DVT prophylaxis: heparin Deposition: PT/OT
[2020-11-04] MEDS: Polymyxin B/Trimethoprim 10 ML Bottle EYEBOTH SCH ×4 (11:12→21:00)
[2020-11-04] MEDS ORDERED: Ondansetron 4 MG/2 ML SDV IVPUSH PRN (14:27)
[2020-11-04] MEDS ORDERED: Ondansetron 4 MG Tab.DIS **PTOM PO PRN (14:28)
[2020-11-04] MEDS: VALACYCLOVIR 1000 MG PO SCH ×2 (14:57→21:01)
[2020-11-05] MEDS: hydrALAZINE 20 MG/ML SDV IVPUSH PRN (00:15)
[2020-11-05] MEDS: Lactated Ringers 1,000 ML IV SCH (01:14)
[2020-11-05] MEDS: Heparin Sodium 5,000 Units/ML Vial SUBCUT SCH ×3 (01:34→09:12)
[2020-11-05] MEDS: Polymyxin B/Trimethoprim 10 ML Bottle EYEBOTH SCH ×3 (01:34→09:01)
[2020-11-05] MEDS: Pantoprazole 40 MG Tab.CR PO SCH (08:59)
[2020-11-05] MEDS: amLODIPine 2.5 MG Tab PO SCH (09:00)
[2020-11-05] MEDS: Ascorbic Acid 500 MG Tab PO SCH (09:00)
[2020-11-05] MEDS: VALACYCLOVIR 1000 MG PO SCH (09:00)
--- NOTE | 2020-11-05 11:47 | PCM.DCSUM1 ---
Discharge Summary - Hospital Course HPI Initial Comments: Pt is a 79 yom with a hx of HTN and macular degeneration who presented to the ER due to painful shingles eruption on the left side of his forehead and face. He started to feel some hypersensitive sensation on Tuesday (5 days ago) in the area and the rash broke out on (4 days ago). He was seen in clinic yesterday (Tuesday) and started on Valacyclovir 1000mg po tid and percocet. He was seen by an bushler today who told him "had not gone into the eye". He had chickenpox as a child. Other than the symptoms mentioned above, he is fine. Denies headache, dizziness, nausea, vomiting, chest pain, sob or abdominal pain. In the ER, labs WBC 4.47, ESR 19, CRP 4.8. His creatinine 1.4 but there is no previous record available. Pt is a 79 yom with a hx of HTN and macular degeneration who presented to the ER due to painful shingles eruption on the left side of his forehead and face. He started to feel some hypersensitive sensation on Tuesday (5 days ago) and the rash broke out on (4 days ago). Assessment and plan: 1. Shingles had chickenpox as a child Rash broke out on (4 days ago). Seen by an bushler today - had not gone into the eye He started Valacyclovir 1000mg po tid yesterday (after 72-hr period) Benadryl prn capsaicin prn I will still put him on Valacyclovir but reduce dose to 500mg QD based on his renal function. I would not order MRI or LP at this point. He may need to transfer to higher level if his eye is further involved. No evidence of bacterial infections. I would not like to order abx for bacterial infection at this moment. 2. Subconjunctival hematoma monitor vitamin C 3. Hypertensive urgency, BP 182/102 4. HTN Home med does not include BP med. I will start him on amlodipine 2.5 mg daily and hydralazine prn monitor BP 5. KAILYN or KAILYN on CKD creatinine 1.4 Avoid nephrotoxic meds Repeat renal function in am IVF 6. Macular degeneration, left eye 7. Adult failure to thrive 8. Self-care deficit lives alone alone PT OT Buttoner consult DVT prophylaxis: heparin Deposition: PT/OT Diagnosis: Stroke: No - Discharge Data Discharge Date: 11/05/20 Discharge Disposition: Home, Self-Care 01 Condition: Fair - Referral to Home Health Primary Care Physician: Matthwe Feliz Jr, MD - Patient Summary/Data Consults: Consultations 11/04/20 01:17 OT Evaluation and Treatment [CONS] Routine PT Evaluation and Treatment [CONS] Routine 11/04/20 02:04 Consult to Buttoner [CONS] Routine Hospital Course: Patient was admitted for observation. He was rehydrated with IV fluids, PT and occupational therapy was consulted. Patient did have purulent discharge from his left eyes so Polytrim ophthalmic drops were started. Patient had a significant improvement over the next 24 hours and will be discharged home in good condition. Patient will continue and finish Valtrex. He will use Tylenol and Ultram for pain. Patient did have a significantly elevated blood pressure during hospitalization. He was started on 2.5 mg of amlodipine, but still had blood pressures in the 180s at night. He will be discharged on amlodipine 5 mg daily. This will need to be rechecked by his primary care provider. - Patient Instructions Other/Special Instructions: Follow-up with primary care provider within 1 week. - Discharge Plan *PRESCRIPTION DRUG MONITORING PROGRAM REVIEWED*: No *COPY OF PRESCRIPTION DRUG MONITORING REPORT IN PATIENT DAIANA: No Prescriptions/Med Rec: amLODIPine [Norvasc] 5 mg PO DAILY #30 tab traMADol [Ultram] 50 mg PO Q6H PRN #10 tablet PRN Reason: Pain (Moderate 4-6) Home Medications: Home Meds Ondansetron [Zofran ODT] 4 mg PO ASDIRECTED PRN 11/03/20 [History] valACYclovir [Valtrex] 1,000 mg PO TID 11/03/20 [History] Acetaminophen [Tylenol] 650 mg PO Q6H PRN tablet 11/05/20 [Rx] Polymyxin B/Trimethoprim [PolyTrim Ophth Soln] 0 ml EYEBOTH Q4H bottle 11/05/20 [Rx] amLODIPine [Norvasc] 5 mg PO DAILY #30 tab 11/05/20 [Rx] traMADol [Ultram] 50 mg PO Q6H PRN #10 tablet 11/05/20 [Rx] valACYclovir [Valtrex] 1,000 mg PO TID tablet 11/05/20 [Rx] Patient Handouts: Shingles Forms: ED Department Discharge Referrals: Sanya Dang MD [Physician] - 11/12/20 9:50 am (Hospital follow-up appointment and to establish primary care.) Lalit Rg MD [Physician] - (We can not get you in to see Dr Cunha until June so an appointment was scheduled with Dr Dang instead.) - Discharge Summary/Plan Comment DC Time >30 min.: Yes - General Info Date of Service: 11/05/20 Admission Dx/Problem (Free Text: Failure to thrive secondary to shingles Subjective Update: Patient states he still feels tired but he is much better today. Functional Status: Reports: Pain Controlled - Review of Systems General: Reports: No Symptoms HEENT: Reports: No Symptoms Pulmonary: Reports: No Symptoms Cardiovascular: Reports: No Symptoms Gastrointestinal: Reports: No Symptoms Genitourinary: Reports: No Symptoms Musculoskeletal: Reports: No Symptoms Skin: Reports: No Symptoms Neurological: Reports: No Symptoms Psychiatric: Reports: No Symptoms - Patient Data Vitals - Most Recent: Last Vital Signs Temp 97.8 F 11/05/20 08:00 Pulse 89 11/05/20 08:00 Resp 18 11/05/20 08:00 BP 186/93 H 11/05/20 09:00 Pulse Ox 95 11/05/20 08:00 Weight - Most Recent: 176 lb 11.2 oz I&O - Last 24 hours: Intake & Output 11/04/20 11/05/20 11/05/20 22:59 06:59 14:59 Intake Total 2266 1055 Output Total 450 825 Balance 1816 1055 -825 Lab Results - Last 24 hrs: Laboratory Results - last 24 hr 11/05/20 11/05/20 11/05/20 Range/Units 06:18 06:18 06:18 WBC 5.41 (4.23-9.07) K/mm3 RBC 4.37 L (4.63-6.08) M/mm3 Hgb 13.6 L (13.7-17.5) gm/dl Hct 41.8 (40.1-51.0) % MCV 95.7 H (79.0-92.2) fl MCH 31.1 (25.7-32.2) pg MCHC 32.5 (32.2-35.5) g/dl RDW Std Deviation 42.8 (35.1-43.9) fL Plt Count 182 (163-337) K/mm3 MPV 9.5 (9.4-12.3) fl Neut % (Auto) 58.3 (34.0-67.9) % Lymph % (Auto) 29.9 (21.8-53.1) % [place] % (Auto) 10.2 (5.3-12.2) % Eos % (Auto) 0.6 L (0.8-7.0) Baso % (Auto) 0.4 (0.1-1.2) % Neut # (Auto) 3.16 (1.78-5.38) K/mm3 Lymph # (Auto) 1.62 (1.32-3.57) K/mm3 [place] # (Auto) 0.55 (0.30-0.82) K/mm3 Eos # (Auto) 0.03 L (0.04-0.54) K/mm3 Baso # (Auto) 0.02 (0.01-0.08) K/mm3 Manual Slide Review Normal smear Sodium 138 (136-145) mEq/L Potassium 4.1 (3.5-5.1) mEq/L Chloride 104 (98-107) mEq/L Carbon Dioxide 25 (21-32) mEq/L Anion Gap 13.1 (5-15) BUN 22 H (7-18) mg/dL Creatinine 1.1 (0.7-1.3) mg/dL Est Cr Clr Drug Dosing 57.15 mL/min Estimated GFR (MDRD) > 60 (>60) mL/min BUN/Creatinine Ratio 20.0 H (14-18) Glucose 108 (83-115) mg/dL Calcium 8.6 (8.5-10.1) mg/dL Magnesium 2.0 (1.8-2.4) mg/dl Total Bilirubin 0.4 (0.2-1.0) mg/dL AST 19 (15-37) U/L ALT 28 (16-63) U/L Alkaline Phosphatase 66 (46-116) U/L Total Protein 6.6 (6.4-8.2) g/dl Albumin 3.1 L (3.4-5.0) g/dl Globulin 3.5 gm/dL Albumin/Globulin Ratio 0.9 L (1-2) BENITO Results - Last 24 hrs: Microbiology 11/04/20 01:46 Aerobic Blood Culture - Preliminary Blood NO GROWTH AFTER 1 DAY Anaerobic Blood Culture - Preliminary NO GROWTH AFTER 1 DAY Med Orders - Current: Current Medications Acetaminophen (Acetaminophen 325 Mg Tab) 650 mg PO Q6H PRN PRN Reason: Pain (Mild 1-3)/fever Last Admin: 11/05/20 01:35 Dose: 650 mg Documented by: Albuterol/Ipratropium (Albuterol/Ipratropium 3.0-0.5 Mg/3 Ml Neb Soln) 3 ml NEB Q4H PRN PRN Reason: Shortness Of Breath/wheezing Amlodipine Besylate (Amlodipine 2.5 Mg Tab) 2.5 mg PO DAILY [facility] Last Admin: 11/05/20 09:00 Dose: 2.5 mg Documented by: Ascorbic Acid (Ascorbic Acid 500 Mg Tab) 500 mg PO BID [facility] Last Admin: 11/05/20 09:00 Dose: 500 mg Documented by: Capsaicin (Capsaicin 0.1% Cream 42.5 Gm Tube) 0 gm TOP Q6H PRN PRN Reason: Pain Diphenhydramine HCl (Diphenhydramine 12.5 Mg/5 Ml Liquid 5 Ml Ud Cup) 12.5 mg PO Q12H PRN PRN Reason: Itching Heparin Sodium (Porcine) (Heparin Sodium 5,000 Units/Ml Vial) 5,000 units SUBCUT Q8H [facility] Last Admin: 11/05/20 09:12 Dose: Not Given Documented by: Hydralazine HCl (Hydralazine 20 Mg/Ml Sdv) 10 mg IVPUSH Q4H PRN PRN Reason: Hypertension Last Admin: 11/05/20 00:15 Dose: 10 mg Documented by: Lactated Ringer's (Ringers, Lactated) 1,000 mls @ 100 mls/hr IV ASDIRECTED [facility] Last Admin: 11/05/20 01:14 Dose: 100 mls/hr Documented by: Lorazepam (Lorazepam 2 Mg/Ml Sdv) 0.5 mg IV Q6H PRN PRN Reason: Agitation Ondansetron HCl (Ondansetron 4 Mg/2 Ml Sdv) 4 mg IVPUSH Q4H PRN PRN Reason: Nausea/Vomiting Last Admin: 11/05/20 01:42 Dose: 4 mg Documented by: Ondansetron HCl (Ondansetron 4 Mg Tab.Dis Ptom) 4 mg PO Q4H PRN PRN Reason: Nausea/Vomiting Pantoprazole Sodium (Pantoprazole 40 Mg Tab.Cr) 40 mg PO DAILY [facility] Last Admin: 11/05/20 08:59 Dose: 40 mg Documented by: Polymyxin/Trimethoprim Sulfate (Polymyxin B/Trimethoprim 10 Ml Bottle) 0 ml EYEBOTH Q4H [facility] Last Admin: 11/05/20 09:01 Dose: 1 drop Documented by: Sodium Chloride (Sodium Chloride 0.9% 10 Ml Syringe) 10 ml FLUSH ASDIRECTED PRN PRN Reason: Keep Vein Open Last Admin: 11/03/20 21:21 Dose: 10 ml Documented by: Tramadol HCl (Tramadol 50 Mg Tab) 50 mg PO Q6H PRN PRN Reason: Pain (moderate 4-6) Last Admin: 11/04/20 17:47 Dose: 50 mg Documented by: Valacyclovir HCl (Valacyclovir 1,000 Mg Tab Ptom) 1,000 mg PO TID [facility] Last Admin: 11/05/20 09:00 Dose: 1,000 mg Documented by: Discontinued Medications Amlodipine Besylate (Amlodipine 5 Mg Tab) 2.5 mg PO DAILY [facility] Last Admin: 11/04/20 01:44 Dose: 2.5 mg Documented by: Capsaicin (Capsaicin 0.1% Cream 42.5 Gm Tube) 0 gm TOP Q2H PRN PRN Reason: Pain Sodium Chloride (Normal Saline) 1,000 mls @ 75 mls/hr IV ASDIRECTED [facility] Last Admin: 11/03/20 23:11 Dose: 75 mls/hr Documented by: Lactated Ringer's (Ringers, Lactated) 1,000 mls @ 70 mls/hr IV ASDIRECTED [facility] Last Admin: 11/04/20 03:16 Dose: 70 mls/hr Documented by: Promethazine HCl 12.5 mg/ (Sodium Chloride) 50.5 mls @ 100 mls/hr IV Q6H PRN PRN Reason: Nausea/Vomiting Last Admin: 11/04/20 09:11 Dose: 100 mls/hr Documented by: Lorazepam (Lorazepam 2 Mg/Ml Sdv) 1 mg IVPUSH ONETIME ONE Stop: 11/04/20 00:57 Last Admin: 11/04/20 01:29 Dose: 1 mg Documented by: Morphine Sulfate (Morphine 2 Mg/Ml Syringe) 2 mg IVPUSH Q4H PRN PRN Reason: Pain (severe 7-10) Stop: 11/05/20 01:16 Ondansetron HCl (Ondansetron 4 Mg Tab.Dis) 4 mg PO ONETIME ONE Stop: 11/03/20 22:36 Last Admin: 11/03/20 22:41 Dose: 4 mg Documented by: Valacyclovir HCl (Valacyclovir 500 Mg Tab) 500 mg PO DAILY [facility] Last Admin: 11/04/20 08:38 Dose: 500 mg Documented by: Valacyclovir HCl (Valacyclovir 1,000 Mg Tab) 1,000 mg PO TID [facility] Valacyclovir HCl (Valacyclovir 1,000 Mg Tab) 1,000 mg PO TID [facility] - Exam General: Reports: Alert, Oriented HEENT: Reports: Pupils Equal, Pupils Reactive, Mucous Membr. Moist/[place], Other (Improved conjunctival injection of the left eye with no discharge today. Left side of the face is less erythematous.) Lungs: Reports: Clear to Auscultation, Normal Respiratory Effort Cardiovascular: Reports: Regular Rate, Regular Rhythm GI/Abdominal Exam: Normal Bowel Sounds, Soft, Non-Tender, No Organomegaly, No Distention, No Abnormal Bruit Extremities: Normal Inspection, Normal Range of Motion, Non-Tender, No Pedal Edema, Normal Capillary Refill Psy/Mental Status: Reports: Alert, Normal Affect, Normal Mood
== END 2020-11-05 12:30 | disposition home or self-care (01) ==
LOC: JD.ED 19:45 → JD.ICU 11-04 00:54
PROVIDERS: ADMIT Internal Medicine; ATTEND Internal Medicine
DX: B02.9 Zoster without complications (principal); I16.0 Hypertensive urgency; N18.9 Chronic kidney disease, unspecified; I12.9 Hypertensive chronic kidney disease with stage 1 through stage 4 chronic kidney disease, or unspecified chronic kidney disease; H35.30 Unspecified macular degeneration; Z20.822 Contact with and (suspected) exposure to COVID-19; Z79.899 Other long term (current) drug therapy; Z87.891 Personal history of nicotine dependence
CPT/HCPCS: 36415; 80053; 83036; 83735; 83880; 84443; 84484; 85007; 85025; 85027; 85652; 86140; 87040; 96365; 96372; 96375; 96376; 97161; 97165; 99284; A9270; G0378; J0360; J1644; J2060; J2405; J2550; J7030; J7120; U0002; 97110-GO; 97530-GO; 97535-GO; 99217; 99219